=== PATIENT | male | born 1950 | race Asian ===

== ENCOUNTER 2018-03-14 15:10 | Inpatient (IN) | payer OTHER ==
[~2018-03-14] VITALS: Ht 175.3 cm; Wt 124.7 kg
[2018-03-14] VITALS (12 sets, daily range): BP systolic 108–165; BP diastolic 64–91; TEMP 96.7–98; Ht 175.3 cm; Wt 124.7 kg
[~2018-03-14 15:10] MED LIST: ALBU90AE13 INH; AMLODIPINE BESYLATE PO; CYCL10TA35 PO; DICL1GEL2 TOP; DIPH25CA90 PO; DIVA500T2 PO; DIVALPROEX250 MG PO; DIVALPROEX500 MG PO; FEXOFENADINE HC60 MG PO; FLUTICASON50 MCG/ACT NAS; FURO20TA67 PO; GABA300C2 PO; HYDRALAZINE25 MG PO; HYOSCYAMIN PO; K-TAB20 MEQ PO; MOTRIN 400MG TAB PO; MULTIVITAMI1 PO; NATURAL BALANCE1 SOL OPTH; OLANZAPINE20 M1 PO; OMEPRAZOLE20 M1 PO; OXCARBAZEPIN300 MG PO; PROVENTIL INH; RISP0.25 PO; RISP50IN IM; ROBAXIN500 MG PO; TYLENOL325 MG PO; ZIPR80CA PO; [UNRECOGNIZED DRUG - OTHER] PO
[2018-03-15] VITALS (9 sets, daily range): BP systolic 101–165; BP diastolic 52–88; TEMP 97.9–98.6
== END 2018-03-15 10:09 | disposition other institution (70) | DRG 887 ==
LOC: ICU 15:10
PROVIDERS: ADMIT Family Medicine
DX: F44.89 Other dissociative and conversion disorders (principal); R09.02 Hypoxemia; F31.2 Bipolar disorder, current episode manic severe with psychotic features; R06.09 Other forms of dyspnea; T50.901A Poisoning by unspecified drugs, medicaments and biological substances, accidental (unintentional), initial encounter; Y92.238 Other place in hospital as the place of occurrence of the external cause; M54.5 Low back pain; I10 Essential (primary) hypertension; E78.49 Other hyperlipidemia
CPT/HCPCS: 36600; 82805; 94760; J3490